=== PATIENT | female | born 1995 | race Caucasian/White ===

== ENCOUNTER 2017-12-23 20:06 | Emergency (ER) | payer SELFPAY ==
[~2017-12-23] VITALS: Ht 172.7 cm; Wt 70.3 kg
--- NOTE | 2017-12-23 20:25 | NUR ---
PATIENT TO ED DT LOWER BACK PAIN, 6/10 X2 DAYS. PATIENT IS AMBULATORY, NOT IN DISTRESS,. PT IS 14 WEEKS
--- NOTE | 2017-12-23 20:39 | NUR ---
FLAKITA RAMIREZ (MOTHER) [phone]
[2017-12-23 20:48] LABS: APPEARANCE,URINE Clear (CLEAR); BILIRUBIN,URINE Negative (NEGATIVE); BLOOD, URINE Negative Ery/uL (NEGATIVE); COLOR,URINE Yellow (YELLOW); KETONES,URINE Negative (NEGATIVE); LEUKOCYTE ESTERASE ,URINE Negative (NEGATIVE); NITRITE, URINE Negative (NEGATIVE); PROTEIN,URINE Negative (NEGATIVE); UGLUCOSE Negative (NEGATIVE); UROBILINOGEN,URINE 0.2 EU/dL (0.2)
--- NOTE | 2017-12-23 20:51 | NUR ---
LC HART "THERAPIST" [phone]
[2017-12-23 21:53] VITALS: BP 130/80
== END 2017-12-23 21:55 | disposition home or self-care (01) ==
LOC: ER 20:12
DX: Z01.89 Encounter for other specified special examinations (principal); O26.891 Other specified pregnancy related conditions, first trimester; Z3A.16 16 weeks gestation of pregnancy
CPT/HCPCS: 81000-TC; A4606; Z7610